=== PATIENT | female | born 1960 | race African-American/Black ===

== ENCOUNTER 2018-06-10 08:52 | Emergency (ER) | payer MEDICARE ==
[~2018-06-10] VITALS: Ht 165.1 cm; Wt 104.5 kg
[2018-06-10] MEDS ORDERED: AMLO2.5T3 PO (09:02)
[2018-06-10] MEDS ORDERED: PREG50 PO (09:02)
[2018-06-10] MEDS ORDERED: METF-960 PO (09:03)
[2018-06-10 09:08] LABS: GLUCOSE,POINT OF CARE 155 MG/DL (70-110)
[2018-06-10] MEDS ORDERED: AMLO-512 PO (11:22)
[2018-06-10] MEDS ORDERED: PREG75 PO (11:22)
[2018-06-10] MEDS ORDERED: PREGABALIN 75 MG CAPSULE PO ONE (11:30)
[2018-06-10 11:35] VITALS: BP 136/91
== END 2018-06-10 11:47 | disposition home or self-care (01) ==
LOC: EMS 08:53
DX: E11.42 Type 2 diabetes mellitus with diabetic polyneuropathy (principal); I10 Essential (primary) hypertension; Z88.0 Allergy status to penicillin